=== PATIENT | female | born 1955 ===

== ENCOUNTER 2021-02-06 18:35 | Inpatient (IN) ==
[2021-02-06] MEDS ORDERED: Naloxone 0.4 MG/ML INJ IVP PRN (22:58)
[2021-02-06] MEDS ORDERED: Ondansetron 4 MG/2 ML VIAL IVP PRN (22:58)
[2021-02-06] MEDS: 0.9 % Sodium Chloride 1,000 ML IVC SCH (23:18)
[2021-02-06] MEDS: Piperacillin/Tazobactam 3.375 GM in 0.9 % Sodium Chloride Mini Bag 100 ML IVPB SCH (23:18)
[2021-02-07] MEDS: Piperacillin/Tazobactam 3.375 GM in 0.9 % Sodium Chloride Mini Bag 100 ML IVPB SCH ×3 (03:20→16:58)
[2021-02-07] MEDS: Ipratropium/Albuterol Neb 3 ML IH SCH ×4 (04:08→23:26)
[2021-02-07] MEDS: *HR* OxyCODONE/APAP 5/325 TABLET PO PRN ×4 (05:41→21:37)
[2021-02-07 07:25] LABS: Basophils % 0.3 %; Eosinophils # 0.1 K/mcL (0.0-0.6); Hematocrit 42.4 % (35.3-44.9); Hemoglobin 13.9 g/dL (11.5-15.4); Immature Granulocytes % 0.4 % (0-4); Lymphocytes % 14.1 %; Mean Corpuscular HGB Conc 32.8 g/dL (31.6-35.5); Mean Corpuscular Hemoglobin 31.8 pg (28.0-33.3); Mean Platelet Volume 11.1 fL (9.4-12.4); Monocytes # 1.3 K/mcL (0.0-1.3); Monocytes % 9.6 %; Neutrophils # 10.4 K/mcL (1.6-8.9); Platelet Count 236 K/mcL (140-400); Red Blood Count 4.37 M/mcL (3.82-4.97); Red Cell Distribution Width 14.1 % (11.5-14.5); Segmented Neutrophils % 74.6 %; White Blood Count 13.9 K/mcL (4.3-11.1)
[2021-02-07 07:32] LABS: INR 1.1; Prothrombin Time 12.7 Seconds (9.4-12.1)
[2021-02-07] MEDS: Metoprolol XL (24 HR) Succ 25 MG TAB.ER.24H PO SCH (08:10)
[2021-02-07] MEDS: Nicotine 14 MG PATCH.TD24 TD SCH (08:11)
[2021-02-07] MEDS: hydroCHLOROthiazide 25 MG TABLET PO SCH (08:11)
[2021-02-07 08:48] LABS: BUN/Creatinine Ratio 15 (6-26); Blood Urea Nitrogen 12 mg/dL (8-23); Calcium 8.3 mg/dL (8.6-10.3); Carbon Dioxide 28 mEq/L (23-29); Chloride 102 mEq/L (98-107); Glucose 112 mg/dL (70-105); Osmolality,Calculated 285 (280-300); Potassium 3.6 mEq/L (3.5-5.1); Sodium 137 mEq/L (136-145); eGFR For African Americans > 60 (> 60); eGFR For Non-African Americans > 60 (> 60)
[2021-02-07] MEDS: 0.9 % Sodium Chloride 1,000 ML IVC SCH (12:11)
[2021-02-07] MEDS ORDERED: DiphenhydraMINE CREAM 28.4 GM TUBE TP PRN (16:28)
[2021-02-07] MEDS: Acetylcysteine 10% 2 ML INHSOL IH SCH ×2 (16:44→23:28)
[2021-02-07] MEDS: Ketorolac 30 MG/ML VIAL IVP SCH (17:50)
[2021-02-08] MEDS: Nicotine 14 MG PATCH.TD24 TD SCH ×2 (00:06→08:15)
[2021-02-08] MEDS: Acetylcysteine 10% 2 ML INHSOL IH SCH ×2 (04:20→20:54)
[2021-02-08] MEDS: Ipratropium/Albuterol Neb 3 ML IH SCH ×4 (04:21→22:39)
[2021-02-08] MEDS: Ketorolac 30 MG/ML VIAL IVP SCH ×2 (05:10)
[2021-02-08] MEDS: 0.9 % Sodium Chloride 1,000 ML IVC SCH (05:15)
[2021-02-08 06:36] LABS: Basophils # 0.1 K/mcL (0.0-0.2); Basophils % 0.8 %; Eosinophils # 0.3 K/mcL (0.0-0.6); Eosinophils % 2.7 %; Hematocrit 44.6 % (35.3-44.9); Hemoglobin 13.6 g/dL (11.5-15.4); Immature Granulocytes % 0.3 % (0-4); Lymphocytes # 2.1 K/mcL (0.6-4.6); Lymphocytes % 20.3 %; Mean Corpuscular HGB Conc 30.5 g/dL (31.6-35.5); Mean Corpuscular Hemoglobin 31.1 pg (28.0-33.3); Mean Corpuscular Volume 102.1 fL (83.0-100.0); Mean Platelet Volume 11.8 fL (9.4-12.4); Monocytes # 1.1 K/mcL (0.0-1.3); Monocytes % 10.3 %; Neutrophils # 6.9 K/mcL (1.6-8.9); Platelet Count 237 K/mcL (140-400); Red Blood Count 4.37 M/mcL (3.82-4.97); Red Cell Distribution Width 14.4 % (11.5-14.5); Segmented Neutrophils % 65.6 %; White Blood Count 10.6 K/mcL (4.3-11.1)
[2021-02-08] MEDS ORDERED: Piperacillin/Tazobactam 3.375 GM VIAL ONE (07:42)
[2021-02-08] MEDS: Piperacillin/Tazobactam 3.375 GM in 0.9 % Sodium Chloride Mini Bag 100 ML IVPB SCH ×4 (07:49→23:20)
[2021-02-08] MEDS: Metoprolol XL (24 HR) Succ 25 MG TAB.ER.24H PO SCH (08:15)
[2021-02-08] MEDS: *HR* OxyCODONE/APAP 5/325 TABLET PO PRN (08:29)
[2021-02-08] MEDS: hydroCHLOROthiazide 25 MG TABLET PO SCH (09:00)
[2021-02-08] MEDS ORDERED: *HR* HYDROcodone/Acet 5/325 mg TABLET PO PRN (10:02)
[2021-02-08] MEDS ORDERED: Furosemide 20 MG/2 ML VIAL IVP ONE (10:12)
[2021-02-08] MEDS: Budesonide/Formoterol 160/4.5 1 PUFF INH IH SCH ×2 (10:23→22:39)
[2021-02-08] MEDS ORDERED: Isovue-370 500 ML BOTTLE IVP ONE (10:49)
[2021-02-08] MEDS: predniSONE 20 MG TABLET PO SCH (12:20)
[2021-02-08] MEDS: *HR* Heparin 5,000 UNIT/ML VIAL SQ SCH ×3 (12:20→20:24)
[2021-02-08] MEDS: *HR* LORazepam 2 MG/ML VIAL IVP PRN ×2 (12:20→23:18)
[2021-02-08] MEDS: Acetaminophen 325 MG TABLET PO PRN (21:22)
[2021-02-09 01:33] LABS: BUN/Creatinine Ratio 22 (6-26); Blood Urea Nitrogen 22 mg/dL (8-23); Calcium 8.7 mg/dL (8.6-10.3); Carbon Dioxide 28 mEq/L (23-29); Chloride 99 mEq/L (98-107); Glucose 211 mg/dL (70-105); Osmolality,Calculated 292 (280-300); Potassium 3.1 mEq/L (3.5-5.1); Sodium 136 mEq/L (136-145); eGFR For African Americans > 60 (> 60); eGFR For Non-African Americans 56 (> 60)
[2021-02-09] MEDS: Ipratropium/Albuterol Neb 3 ML IH SCH ×3 (03:57→15:53)
[2021-02-09] MEDS: *HR* Heparin 5,000 UNIT/ML VIAL SQ SCH ×3 (05:28→19:46)
[2021-02-09] MEDS: Piperacillin/Tazobactam 3.375 GM in 0.9 % Sodium Chloride Mini Bag 100 ML IVPB SCH ×2 (07:42→17:48)
[2021-02-09] MEDS: Nicotine 14 MG PATCH.TD24 TD SCH (07:43)
[2021-02-09] MEDS: predniSONE 20 MG TABLET PO SCH (08:21)
[2021-02-09] MEDS: Metoprolol XL (24 HR) Succ 25 MG TAB.ER.24H PO SCH (08:21)
[2021-02-09] MEDS: Budesonide/Formoterol 160/4.5 1 PUFF INH IH SCH ×2 (10:25→20:49)
[2021-02-09] MEDS ORDERED: Doxycycline 100 MG in 0.9 % Sodium Chloride Mini Bag 100 ML IVPB ONE (11:26)
[2021-02-09] MEDS: Acetaminophen 325 MG TABLET PO PRN (12:04)
[2021-02-09] MEDS: *HR* LORazepam 2 MG/ML VIAL IVP PRN (14:30)
[2021-02-09 15:01] LABS: Phosphorous 1.9 mg/dL (2.7-4.5)
[2021-02-09] MEDS ORDERED: Melatonin 3 MG TABLET PO PRN (22:44)
[2021-02-10] MEDS: Piperacillin/Tazobactam 3.375 GM in 0.9 % Sodium Chloride Mini Bag 100 ML IVPB SCH ×3 (00:38→15:58)
[2021-02-10] MEDS: *HR* Heparin 5,000 UNIT/ML VIAL SQ SCH ×2 (05:15→15:01)
[2021-02-10] MEDS: Budesonide/Formoterol 160/4.5 1 PUFF INH IH SCH (07:24)
[2021-02-10] MEDS: Nicotine 14 MG PATCH.TD24 TD SCH (08:23)
[2021-02-10] MEDS: Metoprolol XL (24 HR) Succ 25 MG TAB.ER.24H PO SCH (08:23)
[2021-02-10] MEDS: predniSONE 20 MG TABLET PO SCH (08:23)
[2021-02-10 11:35] VITALS: BP 146/68
== END 2021-02-10 16:34 | disposition home or self-care (01) | DRG 919 ==
LOC: 3ANU
PROVIDERS: ADMIT Surgery; ATTEND Surgery